=== PATIENT | male | born 1995 | race Caucasian/White ===

== ENCOUNTER 2016-05-29 07:21 | Emergency (ER) | payer MEDICAID ==
--- NOTE | 2016-05-29 08:14 | ER Document Report ---
ED GI/ - General Chief Complaint: Abdominal Pain Stated Complaint: ADBOMINAL PAIN Mode of Arrival: Ambulatory Information source: Patient TRAVEL OUTSIDE OF THE [place] IN LAST 30 DAYS: No - HPI Patient complains to provider of: Diarrhea, Other - Rash Quality of pain: Achy, Cramping Severity at maximum: Mild Severity in ED: Mild Context: denies: Bad food, Lifting, Out of the country travel, , Recent trauma Associated symptoms: Diarrhea. denies: Blood in emesis, Blood in stool, Chest pain, Chills, Coffee ground emesis, Constipation, Dizzy, Dysuria, Fever, Hematuria, Nausea Notes: 05/29/16 08:11 Patient arrives with complaints of diarrhea and rash. Patient states that he's had diarrhea twice last 2 days and has been having some stomach cramps for the last few days. He denies any blood in the stool. He denies any nausea or vomiting. No fever. No dysuria or hematuria. Patient denies any chest pain or shortness of breath. States that he went to work today as having some stomach cramps and he asked to go home from work and his boss stated that he needed a work note so he came to the ER in order to get a work note for today. He also states that he's had ringworm on his left forearm for several weeks. He was using some antifungal cream ran out. He states that since stopping antifungal cream the rash has gotten worse. He denies any pain to the rash. He denies any prior abdominal surgeries. He denies any other complaints at this time. - Related Data Allergies/Adverse Reactions: oxcarbazepine [From Trileptal] Allergy (Verified 05/29/16 07:30) trazodone Allergy (Verified 05/29/16 07:30) Past Medical History - Social History Smoking Status: Unknown if Ever Smoked Family History: Reviewed & Not Pertinent Patient has suicidal ideation: No Patient has homicidal ideation: No Pulmonary Medical History: Reports: Hx Asthma Neurological Medical History: Denies: Hx Cerebrovascular Accident Renal/ Medical History: Denies: Hx Peritoneal Dialysis Infectious Medical History: Denies: Hx MRSA Past Surgical History: Reports: Hx Oral Surgery - wisdom Review of Systems - Review of Systems -: Yes All other systems reviewed and negative Physical Exam - Vital signs Vitals: Temp Pulse Resp BP Pulse Ox 98.6 F 97 H 17 126/87 H 97 05/29/16 07:33 05/29/16 07:33 05/29/16 07:33 05/29/16 07:33 05/29/16 07:33 - General General appearance: Appears well, Alert - HEENT Head: Normocephalic, Atraumatic Eyes: Normal Pupils: PERRL Ears: Normal Mouth/Lips: Normal Mucous membranes: Normal Pharynx: Normal Neck: Normal - Respiratory Respiratory status: No respiratory distress Breath sounds: Normal - Cardiovascular Rhythm: Regular Heart sounds: Normal auscultation Murmur: No - Abdominal Inspection: Normal Distension: No distension Bowel sounds: Normal Tenderness: Nontender. No: Guarding, Rebound Organomegaly: No organomegaly - Back Back: Normal, Nontender. No: CVA tenderness - Extremities General upper extremity: Normal inspection, Nontender, Normal color, Normal ROM , Normal temperature General lower extremity: Normal inspection, Nontender, Normal color, Normal ROM , Normal temperature, Normal weight bearing. No: Eleonora's sign - Neurological Neuro grossly intact: Yes Cognition: Normal Orientation: AAOx4 [place] Coma Scale Eye Opening: Spontaneous [place] Coma Scale Verbal: Oriented [place] Coma Scale Motor: Obeys Commands [place] Coma Scale Total: 15 Speech: Normal Motor strength normal: LUE, RUE, LLE, RLE Sensory: Normal - Psychological Associated symptoms: Normal affect, Normal mood - Skin Skin Temperature: Warm Skin Moisture: Dry Skin Color: Normal Notes: Patient has approximately 3-4 circular lesions with central clearing to the left forearm consistent with tinea. No vesicular lesions. No signs of cellulitis or abscess. No petechiae. Course - Re-evaluation Re-evalutation: 05/29/16 08:15 Patient is nontoxic. Vital stable vitals. The patient arrives with 2 days of diarrhea. He states he's had 2 episodes of diarrhea. There is no blood in the stool. Complains of some occasional cramping abdominal pain. He has no abdominal tenderness on exam. I offered blood work, the patient declined at this time. States the only reason he came to the ER today was because his work required him to get a doctor's note for today. This point the patient has a completely benign exam, therefore I believe it's okay to not order blood work at this time. Patient will be discharged home with a prescription for Lotrimin for the tinea on his left forearm. We instructed drink plenty of fluids. Follow up if he develops constant abdominal pain. Persistent vomiting. Blood in the stool. Her has any further concerns. The patient is noted to have elevated blood pressure during today's emergency department visit. The patient was informed of this finding. The patient was instructed that this may be related to pre-hypertension and requires further evaluation with a primary care provider. The patient has no hypertensive symptoms at this time. The patient's emergency department workup and current diagnosis were explained to the patient and or family. Follow-up instructions were provided. Medications if prescribed were discussed. Instructions for when to return to the emergency department including specific worrisome symptoms were discussed with the patient and/or family. - Vital Signs Vital signs: Temp Pulse Resp BP Pulse Ox 98.6 F 97 H 17 126/87 H 97 05/29/16 07:33 05/29/16 07:33 05/29/16 07:33 05/29/16 07:33 05/29/16 07:33 Discharge - Discharge Clinical Impression: Tinea corporis Diarrhea Qualifiers: Diarrhea type: unspecified type Qualified Code(s): R19.7 - Diarrhea, unspecified Condition: Stable Disposition: HOME, SELF-CARE Instructions: Abdominal Pain ([facility]), Ringworm (Tinea Corporis) ([facility]), Diarrhea, Nonspecific ([facility]) Additional Instructions: Take medications as prescribed. Keep rash clean and dry. Use cream for 3-5 days after rash has gone away. Lots of fluids. Follow-up with her diarrhea does not improve in 1 week, sooner for constant severe abdominal pain, persistent vomiting, high fever, blood in her stool, or any further concerns. Your blood pressure was elevated during today's visit. Have this rechecked with your doctor. Prescriptions: Butenafine HCl [Lotrimin Ultra 1% Cream] 1 applic TP BID #2 tube Dicyclomine HCl [Bentyl 10 mg Capsule] 1 cap PO TID PRN #15 cap PRN Reason: Forms: Elevated Blood Pressure, Return to Work
[2016-05-29 08:42] VITALS: BP 138/69
== END 2016-05-29 08:41 | disposition home or self-care (01) ==
LOC: ER 07:21
DX: R19.7 Diarrhea, unspecified (principal); B35.4 Tinea corporis; R10.9 Unspecified abdominal pain; R03.0 Elevated blood-pressure reading, without diagnosis of hypertension; J45.909 Unspecified asthma, uncomplicated; Z88.8 Allergy status to other drugs, medicaments and biological substances
CPT/HCPCS: 99283